=== PATIENT | male | born 1955 ===

== ENCOUNTER → 2020-08-14 15:40 | Outpatient (CLI) | payer OTHER | END | disposition home or self-care (01) | LOC: LAB 15:40 | PROVIDERS: ATTEND Surgery | DX: R97.20 Elevated prostate specific antigen [PSA] (principal) ==

== ENCOUNTER 2020-08-29 07:07 | Outpatient (CLI) | payer OTHER | END 2020-08-29 07:19 | disposition home or self-care (01) | LOC: SONOGRAMA 07:07 | PROVIDERS: ATTEND Surgery | DX: R97.20 Elevated prostate specific antigen [PSA] (principal) ==

== ENCOUNTER 2024-09-05 14:57 | Outpatient (CLI) | payer OTHER | END 2024-09-05 15:02 | disposition home or self-care (01) | LOC: LAB 14:57 | PROVIDERS: ATTEND Urology | DX: R97.20 Elevated prostate specific antigen [PSA] (principal) ==

== ENCOUNTER 2024-09-12 07:00 | Outpatient (CLI) | payer OTHER | END 2024-09-12 07:06 | disposition home or self-care (01) | LOC: SONOGRAMA 07:00 | PROVIDERS: ATTEND Urology | DX: C61 Malignant neoplasm of prostate (principal); N40.1 Benign prostatic hyperplasia with lower urinary tract symptoms; R97.20 Elevated prostate specific antigen [PSA] ==